=== PATIENT | female | born 1980 | race Caucasian/White ===

== ENCOUNTER 2016-07-14 18:16 | Emergency (ER) | payer OTHER ==
[2016-07-14 18:34] VITALS: BP 132/90
[2016-07-14] MEDS ORDERED: ALBUTEROL SULFATE/IPRATROPIUM 3 ML NEBU IH ONE ×2 (18:40→18:44)
[2016-07-14] MEDS ORDERED: METHYLPREDNISOLONE SOD SUCC/PF 125 MG/2 ML VIAL IM ONE (18:41)
[2016-07-14] MEDS ORDERED: METHYLPREDNISOLONE SOD SUCC/PF 125 MG/2 ML VIAL ONE (18:43)
--- NOTE | 2016-07-14 18:49 | ERNOTE ---
Date of Service: 07/14/16 Time Seen by Provider: 07/14/16 18:38 Stated Complaint: SINUS PAIN.SNEEZING. Presenting Symptoms:: cough, sore throat, runny nose, fever Source: patient Exam Limitations: no limitations Immunizations: IMMUNIZATION HX Immunizations Up to Date Yes History of Influenza Vaccine Yes Hx Pneumococcal Vaccination No Allergies/Adverse Reactions: Allergies fexofenadine HCl [From [employer]] Allergy (Verified 05/16/16 00:30) Other Home Medications: HOME MEDICATIONS Omeprazole [Prilosec] 20 mg PO DAILY 02/23/16 [Last Taken Unknown] ALPRAZolam [Xanax] 0.25 mg PO DAILY PRN 04/20/16 [Last Taken Unknown] Aspirin [Aspirin Chewable] 81 mg PO DAILY 04/20/16 [Last Taken Unknown] Terbinafine HCl [Lamisil] 250 mg PO DAILY 04/20/16 [Last Taken Unknown] Albuterol Sulfate [Proair Hfa] 2 puff IH TID PRN #1 inhaler 07/14/16 [Last Taken Unknown] Benzonatate 150 mg PO TID #15 capsule 07/14/16 [Last Taken Unknown] Fluticasone Propionate [Flonase] 2 spray NS DAILY #1 inhaler 07/14/16 [Last Taken Unknown] Loratadine [Claritin] 10 mg PO DAILY #30 cap 07/14/16 [Last Taken Unknown] - History of Present Ilness Narrative: Patient comes due to coughing, sinus pain, congestion, and general body pain. Timing: constant Severity: moderate Frequency/Possible Cause: Reports: no prior episodes Modifying Factors - Improves: Reports: nothing Modifying Factors - Worsens: Reports: coughing, deep breath Associated Symptoms: Reports: cough, wheezing, nasal congestion, sore throat, muscle aches, fever/chills, other - Pain behid the eyes. Denies: shortness of breath, lightheadedness, earache Prior Treatment: Denies: recently seen Review of Systems - Review of Systems Constitutional: Present: fever, chills, malaise EYE: Present: no symptoms reported, eye pain - Pain behind the eyes ENT: Present: no symptoms reported Respiratory: Present: cough, wheezing. Absent: shortness of breath Cardiology: Absent: chest pain, palpitations, syncope, edema Gastrointestinal/Abdominal: Absent: nausea, vomiting, diarrhea, constipation, abdominal pain Genitourinary: Present: no symptoms reported Musculoskeletal: Present: muscle pain Skin: Absent: rash, lesions Neurological: Present: no symptoms reported Endocrine: Present: no symptoms reported Hematologic/Lymphatic: Absent: easy bruising, easy bleeding Psych: Present: no symptoms reported All Other Systems: All systems neg except as marked - Patient's Past Medical History Patient History - Medical: Anxiety, Diabetes Type 2, Depression, GERD, Obesity Patient History - Cardiac/Respiratory: Hypertension, Hyperlipidemia Patient History - Cancer: No Hx of Cancer Patient History - Surgical Procedures: Cholecystectomy, , Tubal Ligation - Family History Mother\ Family History - Medical: Diabetes Type 2 Family History - Cardiac/Respiratory: Hypertension Father] Family History - Medical: Diabetes Type 2 Family History - Cardiac/Respiratory: Hypertension - Social History Living Situations: home Smoking Status: Current every day smoker Have you smoked in the past 12 months: Yes Do you dip or chew tobacco: No Patient requests Smoking Cessation Consult: No Initiate information on Smoking Cessation: No Alcohol Use: none Drug Use: none Physical Exam - Physical Exam General Appearance: Present: wd/wn, alert, no apparent distress Eye Exam: Normal inspection: bilateral, PERRL: bilateral, EOMI: bilateral Ears, Nose, Throat: Present: normal ENT inspection, nasal congestion - Clear secretion noticed, sinus pain/drainage, pharyngeal erythema, pharyngeal swelling. Absent: tonsillar exudate, dry mucous membranes Neck: Present: normal inspection, nontender Cardiovascular/Chest: Present: regular rate, rhythm, no murmur, normal peripheral pulses Peripheral Pulses: N=norm/S=strong/W=weak/B=bound/A=absent: Radial (R): Normal, Radial (L): Normal, Dorsalis-pedis (R): Normal, Dorsalis-pedis (L): Normal Gastrointestinal/Abdominal: Present: normal bowel sounds, nontender, nondistended, soft, no organomegaly Back Exam: Present: no CVA tenderness Extremity Exam: Present: normal inspection, non-tender, no edema, normal range of motion Neurological Exam: Present: alert, oriented, normal mood/affect, no motor/ sensory deficits Skin Exam: Absent: diaphoresis, cyanosis, jaundice, skin rash Lymphatic Exam: Present: no adenopathy ED Progress - Date and Time Seen: Date and Time: 07/14/16 19:15 Patient with no distress and with a viral syndrome. Tx will be given and patient will be discharge home. - Results and Orders Patient's Lab Results:: I have reviewed the patient's lab results. Results and Orders: Negative Flu - Vital Signs Patient's Vital Signs:: I have reviewed the patient's vital signs. Vital Signs: Vital Signs 07/14/16 18:28 Temperature 36.8 C Pulse Rate 85 Respiratory 18 Rate Blood Pressure 132/90 O2 Sat by Pulse 96 Oximetry - X-Ray X-Ray #1 X-Ray: chest Interpretation: Interp. by mt X-ray Comments: Air Trapping, No infiltrates and no Consolidates - Progress/Reassessment Chief Complaint: Upper Respiratory Symptoms Departure - Departure Clinical Impression: Upper respiratory disease Sinusitis Qualifiers: Sinusitis location: frontal Chronicity: acute Recurrence: non-recurrent Qualified Code(s): J01.10 - Acute frontal sinusitis, unspecified Disposition: Home self-care Condition: Stable Instructions: Sinusitis, Adult, [id number], Upper Respiratory Infection, Adult, [id number] Referrals: Lupillo Finney MD [Primary Care Provider] - Prescriptions: Albuterol Sulfate [Proair Hfa] 2 puff IH TID PRN #1 inhaler PRN Reason: Shortness Of Breath Benzonatate 150 mg PO TID #15 capsule Fluticasone Propionate [Flonase] 2 spray NS DAILY #1 inhaler Loratadine [Claritin] 10 mg PO DAILY #30 cap
== END 2016-07-14 19:20 | disposition home or self-care (01) ==
LOC: ER 18:16
DX: J06.9 Acute upper respiratory infection, unspecified (principal); J01.10 Acute frontal sinusitis, unspecified; F17.210 Nicotine dependence, cigarettes, uncomplicated; F41.9 Anxiety disorder, unspecified; K21.9 Gastro-esophageal reflux disease without esophagitis

== ENCOUNTER 2016-08-05 22:53 | Emergency (ER) | payer OTHER ==
--- NOTE | 2016-08-05 23:52 | ERNOTE ---
Medical Problem HPI - Narrative Date of Service: 08/05/16 - General Chief Complaint: General Assessment Time Seen by Provider: 08/05/16 23:15 Source: patient Exam Limitations: no limitations - Immun/Allergies/Home Medications Immunizations: IMMUNIZATION HX Immunizations Up to Date No History of Influenza Vaccine Yes Hx Pneumococcal Vaccination No Allergies/Adverse Reactions: Allergies fexofenadine HCl [From [facility]] Allergy (Verified 08/05/16 23:06) Other Home Medications: HOME MEDICATIONS Omeprazole [Prilosec] 20 mg PO DAILY 02/23/16 [Last Taken Unknown] ALPRAZolam [Xanax] 0.5 mg PO DAILY PRN 04/20/16 [Last Taken 08/05/16 17:00] Aspirin [Aspirin Chewable] 81 mg PO DAILY 04/20/16 [Last Taken Unknown] Albuterol Sulfate [Proair Hfa] 2 puff IH TID PRN #1 inhaler 07/14/16 [Last Taken Unknown] - History of Present History Date (Duration): 08/05/16 Time (Timing): 23:45 Timing: resolved prior to arrival Severity: mild Modifying Factors - (Improves): Present: other - this patient reports that one week ago she had a significant sinus infection which required prolonged bed rest for a few days. She states she's also just getting over her menstrual cycle and that she tends to drink a large amount of soda pop with very little water. Today patient had a migraine headache which responded to her typical Tylenol regimen. Little later in afternoon she noted that her heart seemed to be racing and used her home blood pressure cuff which showed a heart rate greater than 110 and blood pressure 150/110. Patient became concerned and came to the ER for further evaluation. Essentially all symptoms mentioned above have resolved. Patient had no associated chest pain diaphoresis or shortness of breath nausea vomiting or any neck to arm or back pain with the above. Patient cardiac risk factors positive for tobacco positive for hypertension negative for family history negative for hyperlipidemia negative for diabetes mellitus. Review of Systems - Review of Systems Constitutional: Present: no symptoms reported EYE: Present: no symptoms reported ENT: Present: no symptoms reported Respiratory: Present: no symptoms reported Cardiology: Present: palpitations, other - patient has also noted some orthostatic hypotension symptoms over the last few days. Gastrointestinal/Abdominal: Present: no symptoms reported Genitourinary: Present: no symptoms reported Musculoskeletal: Present: no symptoms reported Skin: Present: no symptoms reported Neurological: Present: dizziness/light-headedness Endocrine: Present: no symptoms reported Hematologic/Lymphatic: Present: no symptoms reported Psych: Present: no symptoms reported - Patient's Past Medical History Patient History - Medical: Anxiety, Diabetes Type 2, Depression, GERD, Obesity Patient History - Cardiac/Respiratory: Hypertension Patient History - Cancer: No Hx of Cancer Patient History - Surgical Procedures: Cholecystectomy, , Tubal Ligation Patient History - Other: None LMP (females 10-50): this week - Family History Mother\ Family History - Medical: Diabetes Type 2 Family History - Cardiac/Respiratory: Hypertension Father] Family History - Medical: Diabetes Type 2 Family History - Cardiac/Respiratory: Hypertension - Social History Living Situations: home Abuse History: No History of abuse Psych History: Hx of Anxiety, Hx of Depression, Hx of Psychiatric Tx Smoking Status: Current every day smoker Alcohol Use: rarely Drug Use: none - Immunizations Immunizations Up to Date: No Hx Pneumococcal Vaccination: No History of Influenza Vaccine: Yes Physical Exam - Physical Exam General Appearance: Present: wd/wn, alert, no apparent distress Eye Exam: Normal inspection: bilateral, PERRL: bilateral, EOMI: bilateral Ears, Nose, Throat: Present: normal ENT inspection, hearing grossly normal, normal pharynx Neck: Present: normal inspection, nontender Respiratory: Present: no respiratory distress, normal breath sounds, no accessory muscle use, chest nontender, lungs clear Cardiovascular/Chest: Present: regular rate, rhythm, no murmur, normal peripheral pulses Peripheral Pulses: N=norm/S=strong/W=weak/B=bound/A=absent: Carotid (R): Normal , Carotid (L): Normal, Dorsalis-pedis (R): Normal, Dorsalis-pedis (L): Normal Gastrointestinal/Abdominal: Present: normal bowel sounds, nontender, nondistended, soft, no organomegaly Back Exam: Present: normal inspection, normal range of motion, no CVA tenderness , no vertebral tenderness Extremity Exam: Present: normal inspection, non-tender, no edema, normal range of motion Neurological Exam: Present: alert, oriented, normal mood/affect, no motor/ sensory deficits Skin Exam: Present: normal color, warm/dry Lymphatic Exam: Present: no adenopathy ED Progress - Date and Time Seen: Date and Time: 08/05/16 23:49 Patient with multiple recent events which was likely result in mild time patient 's status. Patient EKG today sinus rhythm with rate 95. No ST-T changes seen. QRS interval 93 VT interval 1:30 QTC 401. Patient feels she is stable enough to rehydrate orally this declining IV fluids. Given low cardiac risk and fact that this is first time ever she has had sensation of heart palpitations and transient tachycardia feel best to have patient rehydrate minimize soda intake and return only if symptoms persist. If this should recur we'll discuss placement of Holter monitor and/or [employer] monitor based on frequency of symptoms. Did not feel benefits outweighed cost of this low likelihood of being any more than transient problem at this point. Examine EKG as mentioned above normal but extremely low likelihood of cardiac laboratory or clinical abnormality. Should symptoms recur as mentioned above we'll proceed with expanded workup at that point. - Results and Orders Patient's Lab Results:: I have reviewed the patient's lab results. - Vital Signs Patient's Vital Signs:: I have reviewed the patient's vital signs. Vital Signs: Vital Signs 08/05/16 22:59 Temperature 36.1 C L Pulse Rate 98 Respiratory 18 Rate Blood Pressure 161/96 O2 Sat by Pulse 98 Oximetry - Progress/Reassessment Chief Complaint: General Assessment Departure - Departure Clinical Impression: Dehydration Disposition: Home self-care Condition: Good Instructions: Rehydration, Adult Additional Instructions: Recommend moderate restriction soda intake with increase in fluid intake consisting of water. Recommend 6 date large glasses of water daily. Please change positions slowly especially going from sitting to standing over the next few days. Should symptoms of heart racing recur these return for reexamination and cardiac monitor technician placement. At that point we'll expand workup to include lab testing as well. Referrals: Lupillo Finney MD [Primary Care Provider] -
[2016-08-05 23:53] VITALS: BP 140/86
== END 2016-08-05 23:58 | disposition home or self-care (01) ==
LOC: ER 22:53
DX: E86.0 Dehydration (principal); F17.210 Nicotine dependence, cigarettes, uncomplicated; F41.9 Anxiety disorder, unspecified; K21.9 Gastro-esophageal reflux disease without esophagitis

== ENCOUNTER 2016-10-17 21:15 | Emergency (ER) | payer OTHER ==
[2016-10-17 21:30] VITALS: BP 163/104
--- NOTE | 2016-10-17 22:11 | ERNOTE ---
Medical Problem HPI - General Chief Complaint: General Assessment Time Seen by Provider: 10/17/16 22:01 Source: patient Exam Limitations: no limitations - Immun/Allergies/Home Medications Immunizations: IMMUNIZATION HX Immunizations Up to Date Yes History of Influenza Vaccine Yes Hx Pneumococcal Vaccination No Allergies/Adverse Reactions: Allergies fexofenadine HCl [From [facility]] Allergy (Verified 08/05/16 23:06) Other Home Medications: HOME MEDICATIONS Omeprazole [Prilosec] 20 mg PO DAILY 02/23/16 [Last Taken Unknown] ALPRAZolam [Xanax] 0.5 mg PO DAILY PRN 04/20/16 [Last Taken 08/05/16 17:00] Aspirin [Aspirin Chewable] 81 mg PO DAILY 04/20/16 [Last Taken Unknown] Albuterol Sulfate [Proair Hfa] 2 puff IH TID PRN #1 inhaler 07/14/16 [Last Taken Unknown] Cephalexin [Keflex] 500 mg PO QID #40 capsule 10/17/16 [Last Taken Unknown] Lisinopril 5 mg PO DAILY 10/17/16 [Last Taken Unknown] Propranolol HCl 40 mg PO DAILY 10/17/16 [Last Taken Unknown] Venlafaxine HCl [Effexor Xr] 75 mg PO DAILY 10/17/16 [Last Taken Unknown] - History of Present History Narrative: pt had a tattoo outline that she had for some time. Two weeks ago she had it filled in with color. The tattoo then began to get red and swollen. She called the clinic and they told her she needed to be seen in the ER. Timing: getting worse Severity: moderate Review of Systems - Review of Systems Constitutional: Present: weakness, fatigue. Absent: recent illness EYE: Present: no symptoms reported ENT: Present: no symptoms reported Respiratory: Present: shortness of breath - x 2 days Cardiology: Present: edema - b/l LE . Absent: chest pain Gastrointestinal/Abdominal: Present: no symptoms reported Genitourinary: Present: no symptoms reported Musculoskeletal: Present: no symptoms reported Skin: Present: See HPI Neurological: Present: no symptoms reported Endocrine: Present: no symptoms reported Hematologic/Lymphatic: Present: no symptoms reported Psych: Present: anxiety - Patient's Past Medical History Patient History - Medical: Anxiety, Diabetes Type 2, Depression, GERD, Obesity Patient History - Cardiac/Respiratory: Hypertension Patient History - Cancer: No Hx of Cancer Patient History - Surgical Procedures: Cholecystectomy, , Tubal Ligation Patient History - Other: None LMP (females 10-50): 3 weeks - Family History Mother\\ Family History - Medical: Diabetes Type 2 Family History - Cardiac/Respiratory: Hypertension Father] Family History - Medical: Diabetes Type 2 Family History - Cardiac/Respiratory: Hypertension - Social History Living Situations: spouse Abuse History: No History of abuse Psych History: Hx of Anxiety, Hx of Depression, Hx of Psychiatric Tx Smoking Status: Current every day smoker Have you smoked in the past 12 months: Yes Do you dip or chew tobacco: No Alcohol Use: rarely Drug Use: none - Immunizations Immunizations Up to Date: Yes Hx Pneumococcal Vaccination: No History of Influenza Vaccine: Yes Physical Exam - Physical Exam General Appearance: Present: wd/wn, alert, no apparent distress Eye Exam: Normal inspection: bilateral Respiratory: Present: no respiratory distress, normal breath sounds, lungs clear Cardiovascular/Chest: Present: regular rate, rhythm, no murmur Extremity Exam: Present: extremity edema - 2+ b/l. . Absent: calf tenderness, bony tenderness Neurological Exam: Present: alert, oriented, normal mood/affect Skin Exam: Present: other - erythema and scabbing on the [id number] tattoo with a baloon. The balloon is the most effected, nearly completely scabbed and erythematous just outside of the balloon outline Lymphatic Exam: Present: no adenopathy ED Progress - Results and Orders Patient's Lab Results:: I have reviewed the patient's lab results. Results and Orders: Laboratory Tests 10/17/16 10/17/16 10/17/16 22:17 22:17 22:17 WBC 8.3 Hgb 12.2 L Hct 37.4 Plt Count 266 ESR 19 H Sodium 142 Plasma Sodium 143 H Potassium 3.8 Chloride 105 Carbon Dioxide 25.1 Anion Gap 15.7 H BUN 7 Creatinine 0.85 Est GFR (Non-Af Amer) 81 BUN/Creatinine Ratio 8.2 L Random Glucose 175 H Calcium 7.7 L C-Reactive Prot, Quant 1.9 H B-Natriuretic Peptide 154 H - Vital Signs Patient's Vital Signs:: I have reviewed the patient's vital signs. Vital Signs: Vital Signs 10/17/16 10/17/16 21:23 21:45 Temperature 36.7 C Pulse Rate 102 H 113 H Respiratory 18 Rate Blood Pressure 163/104 O2 Sat by Pulse 97 97 Oximetry - Progress/Reassessment Chief Complaint: General Assessment Progress:: Unchanged Progress Note-Subjective: 10/17/16 23:57 discussed elevating her legs 30-60 minutes a day to help with edema. Pt states that she does get some "water retention" during her period this is more that usual Departure - Departure Clinical Impression: Cellulitis of leg Qualifiers: Laterality: left Qualified Code(s): L03.116 - Cellulitis of left lower limb Disposition: Home self-care Condition: Good Instructions: Cellulitis, Adult, [id number] Referrals: Lupillo Finney MD [Primary Care Provider] - Prescriptions: Cephalexin [Keflex] 500 mg PO QID #40 capsule
[2016-10-17 22:23] LABS: Hematocrit 37.4 % (37.0-47.0); Hemoglobin 12.2 gm/dL (12.5-16.0); Mean Cell Volume 80.4 fl (78-100); Mean Corpuscular Hemoglobin 26.2 pg (27-31); Mean Corpuscular Hgb Conc 32.6 g/dl (32-36); Mean Platelet Volume 8.4 fl (6.0-9.5); Neutrophil # 5.6 K/mm3 (1.3-6.0); Neutrophil % 67.3 % (42-75.0); Platelet Count 266 K/mm3 (150-450); Red Blood Count 4.65 M/mm3 (4.2-5.4); Red Cell Distribution Width 14.6 % (11.5-14.0); White Blood Count 8.3 K/mm3 (4.0-10.5)
[2016-10-17 22:59] LABS: Anion Gap 15.7 mmol/L (6.8-13.8); BUN/Creatinine Ratio 8.2 (9.0-21.6); CRP 1.9 mg/dL (0.0-0.9); Calcium * 7.7 mg/dL (7.9-10.9); Carbon Dioxide 25.1 mmol/L (24-32.6); Estimated Creat Clear 100.8; Potassium 3.8 mmol/L (3.4-4.6)
[2016-10-17] MEDS ORDERED: CEPHALEXIN MONOHYDRATE 250 MG CAPSULE PO ONE (23:20)
[2016-10-17] MEDS ORDERED: CEPHALEXIN MONOHYDRATE 250 MG CAPSULE ONE (23:22)
== END 2016-10-17 23:30 | disposition home or self-care (01) ==
LOC: ER 21:15
DX: L03.116 Cellulitis of left lower limb (principal)

== ENCOUNTER 2016-10-20 16:48 | Emergency (ER) | payer OTHER ==
[2016-10-20 17:31] LABS: Hematocrit 37.7 % (37.0-47.0); Hemoglobin 12.3 gm/dL (12.5-16.0); Mean Corpuscular Hemoglobin 26.7 pg (27-31); Mean Corpuscular Hgb Conc 32.6 g/dl (32-36); Mean Platelet Volume 8.5 fl (6.0-9.5); Neutrophil # 5.2 K/mm3 (1.3-6.0); Neutrophil % 68.1 % (42-75.0); Platelet Count 237 K/mm3 (150-450); Red Cell Distribution Width 14.6 % (11.5-14.0); White Blood Count 7.7 K/mm3 (4.0-10.5)
[2016-10-20 17:33] LABS: Urine Appearance Clear; Urine Bacteria None Seen; Urine Bilirubin Negative (NEGATIVE); Urine Blood Negative /ul (NEGATIVE); Urine Color Yellow; Urine Ketone Negative (NEGATIVE); Urine Nitrite Negative (NEGATIVE); Urine Protein Negative (NEGATIVE); Urine RBC None Seen /hpf (0-5); Urine Urobilinogen Normal (NORMAL); Urine WBC None Seen /hpf (0-5)
--- NOTE | 2016-10-20 17:51 | ERNOTE ---
Dyspnea - Date Date of Service: 10/20/16 - General Presenting Symptoms: shortness of breath Time Seen by Provider: 10/20/16 17:05 - Immun/Allergies/Home Medications Immunizations: IMMUNIZATION HX Immunizations Up to Date Yes History of Influenza Vaccine Yes Hx Pneumococcal Vaccination No Allergies/Adverse Reactions: Allergies fexofenadine HCl [From [facility]] Allergy (Verified 10/20/16 17:02) Other Home Medications: HOME MEDICATIONS Omeprazole [Prilosec] 20 mg PO DAILY 02/23/16 [Last Taken Unknown] ALPRAZolam [Xanax] 0.5 mg PO DAILY PRN 04/20/16 [Last Taken 08/05/16 17:00] Aspirin [Aspirin Chewable] 81 mg PO DAILY 04/20/16 [Last Taken Unknown] Albuterol Sulfate [Proair Hfa] 2 puff IH TID PRN #1 inhaler 07/14/16 [Last Taken Unknown] Cephalexin [Keflex] 500 mg PO QID #40 capsule 10/17/16 [Last Taken Unknown] Lisinopril 5 mg PO DAILY 10/17/16 [Last Taken Unknown] Propranolol HCl 40 mg PO DAILY 10/17/16 [Last Taken Unknown] Venlafaxine HCl [Effexor Xr] 75 mg PO DAILY 10/17/16 [Last Taken Unknown] Clindamycin HCl [Cleocin HCl] 300 mg PO QID #40 capsule 10/20/16 [Last Taken Unknown] Prednisone 50 mg PO DAILY #5 tablet 10/20/16 [Last Taken Unknown] - History of Present Illness Narrative: Patient presents to the ED for evaluation of SOB. She relates that she thinks she is reacting to the keflex she is on. She tells me she was placed on Keflex for a left leg cellulitis and ever since she has started the Keflex 2.5 days ago she has been feeling SOB. She notices the SOB all the time but thisnks it is worse at night. There is some sensation of chjest tightness with this but no specific CP. No pleuritic pain. No fever or vomiting. She fells like she needs to cough something up but can't. No other URI Sx. Has not seen anyone else for this. Not clearly worse with exertion. No DDVT Sx or new leg swelling aside from the cellulitis at a tattoo site. Severity: mild Initiating event: Reports: unknown Frequency of episodes: Reports: no prior episodes Modifying Factors - (Improves): Reports: nothing Modifying Factors (Worsens): Reports: nothing Associated Symptoms-Dyspnea: Denies: fever/chills, sweating, palpitations, lightheadedness, weakness Prior Treatment: Reports: recently seen, treated by physician Review of Systems - Review of Systems Constitutional: Absent: fever Respiratory: Present: See HPI Cardiology: Present: See HPI Gastrointestinal/Abdominal: Absent: abdominal pain Skin: Present: See HPI Neurological: Absent: weakness - Patient's Past Medical History Patient History - Medical: Anxiety, Diabetes Type 2, Depression, GERD, Obesity Patient History - Cardiac/Respiratory: Hypertension Patient History - Cancer: No Hx of Cancer Patient History - Surgical Procedures: Cholecystectomy, , Tubal Ligation Patient History - Other: None - Family History Mother\ Family History - Medical: Diabetes Type 2 Family History - Cardiac/Respiratory: Hypertension Father] Family History - Medical: Diabetes Type 2 Family History - Cardiac/Respiratory: Hypertension - Social History Living Situations: spouse Abuse History: No History of abuse Psych History: Hx of Anxiety, Hx of Depression, Hx of Psychiatric Tx Alcohol Use: rarely Drug Use: none - Immunizations Immunizations Up to Date: Yes Hx Pneumococcal Vaccination: No History of Influenza Vaccine: Yes Physical Exam - Physical Exam General Appearance: Present: alert, no apparent distress Eye Exam: Normal inspection: bilateral, PERRL: bilateral Ears, Nose, Throat: Present: normal ENT inspection Neck: Present: normal inspection Respiratory: Present: no respiratory distress, normal breath sounds, no accessory muscle use, lungs clear. Absent: accessory muscle use Cardiovascular/Chest: Present: regular rate, rhythm, normal peripheral pulses Gastrointestinal/Abdominal: Present: normal bowel sounds, nontender, soft Back Exam: Present: normal range of motion Extremity Exam: Present: other - No DVT findings. Neurological Exam: Present: alert, normal mood/affect, no motor/sensory deficits Skin Exam: Present: other - cellulitis from infected tattoo left leg. No nec fasc. ED Progress - Results and Orders Patient's Lab Results:: I have reviewed the patient's lab results. - Vital Signs Patient's Vital Signs:: I have reviewed the patient's vital signs. Vital Signs: Vital Signs 04/28/17 04/28/17 16:53 17:19 Temperature 35.8 C L Pulse Rate 96 79 Respiratory 22 H Rate Blood Pressure 168/118 O2 Sat by Pulse 95 Oximetry - EKG EKG: NSR EKG read: Interp. by me EKG Comments: NSR rate 79. Non-specific changes, no STEMI. - X-Ray X-Ray #1 X-Ray: chest Interpretation: Interp. by me X-ray Comments: Pending official CXR reading. My interp, No acute pulmonary process. - Progress/Reassessment Chief Complaint: Dyspnea Progress Note-Subjective: 10/20/16 19:39 Feels improved. She does not wish to wait for official CXR reading. Will stop ABx, place on prednisone, change ABx and have her f/u. Nothign to suggest PE, aortic dissection with d-dimer in normal range I do not feel CT indicated. Nothing to suggest ACS. I do not feel CXR is suggestive of CHF. She feels like going home. I discussed warning signs and reasons to return as well as the need for close f/u. I will treat with steroid just in case this was some mild allergic reaction from the Keflex as the patient thought. 10/20/16 19:45 Departure Clinical Impression: SOB (shortness of breath), Cellulitis - Departure Disposition: Home self-care Condition: Stable Additional Instructions: Stop Keflex, begin new antibiotic. Use your inhaler every 4 hours. Prednisone. Follow-up sunday with your primary doctor for a re-check. Return here for increased trouble breathing, fever or if your condition worsens or changes in any way. Referrals: Lupillo Finney MD [Primary Care Provider] - Prescriptions: Clindamycin HCl [Cleocin HCl] 300 mg PO QID #40 capsule Prednisone 50 mg PO DAILY #5 tablet
[2016-10-20 17:53] LABS: ALT 34 U/L (19-67); AST 20 U/L (0-48); Albumin * 2.9 gm/dl (3.4-5.0); Alkaline Phosphatase * 107 U/L (50-170); Anion Gap 10.8 mmol/L (6.8-13.8); BUN/Creatinine Ratio 10.3 (9.0-21.6); Bilirubin, Total 0.2 mg/dL (0.0-1.1); Blood Urea Nitrogen 8 mg/dL (3-23); Ca. Corrected For Albumin 8.5 mg/dL (8.4-10.2); Calcium * 7.9 mg/dL (7.9-10.9); Carbon Dioxide 28.1 mmol/L (24-32.6); Chloride 105 mmol/L (97-106); Glucose * 134 mg/dL (70-110); Potassium 3.9 mmol/L (3.4-4.6); Sodium 140 mmol/L (132-142); Total Protein 6.5 gm/dL (6.2-8.2); Troponin I Less than 0.017 ng/ml (0.00-0.10)
[2016-10-20 21:47] VITALS: BP 133/73
== END 2016-10-20 19:54 | disposition home or self-care (01) ==
LOC: ER 16:48
DX: R06.02 Shortness of breath (principal); L03.116 Cellulitis of left lower limb

== ENCOUNTER 2016-12-28 22:40 | Emergency (ER) | payer OTHER ==
[2016-12-28] MEDS ORDERED: NORMAL SALINE 1,000 ML IV ONE (23:04)
--- NOTE | 2016-12-28 23:05 | ERNOTE ---
Medical Problem HPI - General Chief Complaint: Diabetes Related Problem Time Seen by Provider: 12/28/16 22:53 Source: patient Exam Limitations: no limitations - Immun/Allergies/Home Medications Immunizations: IMMUNIZATION HX Immunizations Up to Date Yes History of Influenza Vaccine Yes Hx Pneumococcal Vaccination No Allergies/Adverse Reactions: Allergies fexofenadine HCl [From Neris] Allergy (Verified 12/28/16 22:49) Other Home Medications: HOME MEDICATIONS Omeprazole [Prilosec] 20 mg PO DAILY 02/23/16 [Last Taken Unknown] ALPRAZolam [Xanax] 0.5 mg PO DAILY PRN 04/20/16 [Last Taken 08/05/16 17:00] Albuterol Sulfate [Proair Hfa] 2 puff IH TID PRN #1 inhaler 07/14/16 [Last Taken Unknown] Lisinopril 5 mg PO DAILY 10/17/16 [Last Taken Unknown] Propranolol HCl 40 mg PO DAILY 10/17/16 [Last Taken Unknown] Venlafaxine HCl [Effexor Xr] 75 mg PO DAILY 10/17/16 [Last Taken Unknown] glipiZIDE [Glucotrol Xl] 2.5 mg PO DAILY@0700 #7 tab.sr.24h 12/29/16 [Last Taken Unknown] metFORMIN HCL [Glucophage] 1,000 mg PO BIDWM #14 tablet 12/29/16 [Last Taken Unknown] - History of Present History Narrative: Pt states that she noticed that she was urinating a lot over the past few days. She checked her blood sugar and it was over 250. She began taking her metformin and glipizide again. Her blood sugars have continued to stay over 200. Timing: getting worse Severity: moderate Review of Systems - Review of Systems Constitutional: Absent: recent illness, fever, chills EYE: Present: no symptoms reported ENT: Present: no symptoms reported Respiratory: Absent: shortness of breath, cough Cardiology: Absent: chest pain, palpitations Gastrointestinal/Abdominal: Present: diarrhea. Absent: nausea, vomiting Genitourinary: Present: frequency, other - "yeast infection" twice in the last 4 months.. Absent: dysuria, hematuria Musculoskeletal: Present: no symptoms reported Skin: Present: no symptoms reported Neurological: Present: no symptoms reported Endocrine: Present: no symptoms reported Hematologic/Lymphatic: Present: no symptoms reported Psych: Present: no symptoms reported - Patient's Past Medical History Patient History - Medical: Anxiety, Diabetes Type 2, Depression, GERD, Obesity Patient History - Cardiac/Respiratory: Hypertension Patient History - Cancer: No Hx of Cancer Patient History - Surgical Procedures: Cholecystectomy, , Tubal Ligation Patient History - Other: None LMP (females 10-50): 4 months - Family History Mother\\ Family History - Medical: Diabetes Type 2 Family History - Cardiac/Respiratory: Hypertension Father] Family History - Medical: Diabetes Type 2 Family History - Cardiac/Respiratory: Hypertension - Social History Living Situations: home Abuse History: No History of abuse Psych History: Hx of Anxiety, Hx of Depression, Hx of Psychiatric Tx Alcohol Use: rarely Drug Use: none - Immunizations Immunizations Up to Date: Yes Hx Pneumococcal Vaccination: No History of Influenza Vaccine: Yes Physical Exam - Physical Exam General Appearance: Present: wd/wn, alert, no apparent distress Neck: Present: normal inspection, nontender Respiratory: Present: no respiratory distress, normal breath sounds, lungs clear Cardiovascular/Chest: Present: regular rate, rhythm, no murmur, normal peripheral pulses Back Exam: Present: normal inspection, normal range of motion Extremity Exam: Present: normal inspection, normal range of motion, no edema Neurological Exam: Present: alert, oriented, normal mood/affect Skin Exam: Present: normal color, warm/dry Lymphatic Exam: Present: no adenopathy ED Progress - Results and Orders Patient's Lab Results:: I have reviewed the patient's lab results. Results and Orders: Laboratory Tests 12/28/16 12/28/16 12/28/16 23:04 23:17 23:17 WBC 6.9 Hgb 13.5 Hct 41.0 Plt Count 211 Sodium 137 Potassium 3.8 Chloride 100 Carbon Dioxide 28.1 Anion Gap 12.7 BUN 8 Creatinine 0.92 Est GFR (Non-Af Amer) 74 BUN/Creatinine Ratio 8.7 L Random Glucose 258 H Calcium 8.3 Calcium Adj for Albumin 8.7 Total Bilirubin 0.3 AST 32 ALT 52 Alkaline Phosphatase 122 Total Protein 6.9 Albumin 3.1 L Urine Color Urine Appearance Urine pH Ur Specific [place] Urine Protein Urine Glucose (UA) Urine Ketones Urine Blood Urine Nitrate Urine Bilirubin Urine Urobilinogen Ur Leukocyte Esterase Urine RBC Urine WBC Ur Epithelial Cells Amorphous Sediment Urine Bacteria Urine Mucus Urine Culture Comments Urine HCG, Qual Negative 12/29/16 00:02 WBC Hgb Hct Plt Count Sodium Potassium Chloride Carbon Dioxide Anion Gap BUN Creatinine Est GFR (Non-Af Amer) BUN/Creatinine Ratio Random Glucose Calcium Calcium Adj for Albumin Total Bilirubin AST ALT Alkaline Phosphatase Total Protein Albumin Urine Color Pale yellow Urine Appearance Slightly cloudy Urine pH 6.0 Ur Specific [place] <=1.005 Urine Protein Negative Urine Glucose (UA) 100 H Urine Ketones Negative Urine Blood 5 H Urine Nitrate Negative Urine Bilirubin Negative Urine Urobilinogen Normal Ur Leukocyte Esterase Negative Urine RBC 0-5 Urine WBC 0-5 Ur Epithelial Cells 10-25 H Amorphous Sediment Moderate - 2+ H Urine Bacteria None seen Urine Mucus Moderate - 2+ H Urine Culture Comments No culture indicated Urine HCG, Qual - Vital Signs Patient's Vital Signs:: I have reviewed the patient's vital signs. Vital Signs: Vital Signs 12/28/16 12/28/16 22:44 22:53 Temperature 36.0 C L Pulse Rate 94 96 Respiratory 15 Rate Blood Pressure 147/102 O2 Sat by Pulse 95 Oximetry - Progress/Reassessment Chief Complaint: Diabetes Related Problem Progress:: Unchanged Progress Note-Subjective: 12/29/16 01:02 Spoke with the patient about normal lab and xrays. She states she is almost out of her diabetic medications. I will refill her glipizide 2.5 mg XL daily x 7 days and metformin 1000 mg BID x 7 days. She will see her PCP within the next week. Departure - Departure Clinical Impression: Diabetes mellitus Qualifiers: Diabetes mellitus type: type 2 Diabetes mellitus complication status: without complication Diabetes mellitus buttermaker continuous churn insulin use: without nursing home use Qualified Code(s): E11.9 - Type 2 diabetes mellitus without complications Disposition: Home Follow Up Needed Condition: Good Instructions: Hyperglycemia, [id number] Additional Instructions: take your metformin twice a day and take your glipizide daily. See your regular doctor next week Referrals: Lupillo Finney MD [Primary Care Provider] - Prescriptions: glipiZIDE [Glucotrol Xl] 2.5 mg PO DAILY@0700 #7 tab.sr.24h metFORMIN HCL [Glucophage] 1,000 mg PO BIDWM #14 tablet
[2016-12-28 23:21] LABS: Hemoglobin 13.5 gm/dL (12.5-16.0); Mean Cell Volume 81.3 fl (78-100); Mean Corpuscular Hemoglobin 26.8 pg (27-31); Mean Corpuscular Hgb Conc 32.9 g/dl (32-36); Mean Platelet Volume 8.8 fl (6.0-9.5); Neutrophil # 4.5 K/mm3 (1.3-6.0); Neutrophil % 64.5 % (42-75.0); Platelet Count 211 K/mm3 (150-450); Red Blood Count 5.04 M/mm3 (4.2-5.4); Red Cell Distribution Width 14.3 % (11.5-14.0); White Blood Count 6.9 K/mm3 (4.0-10.5)
[2016-12-28 23:38] LABS: Albumin * 3.1 gm/dl (3.4-5.0); Anion Gap 12.7 mmol/L (6.8-13.8); BUN/Creatinine Ratio 8.7 (9.0-21.6); Bilirubin, Total 0.3 mg/dL (0.0-1.1); Ca. Corrected For Albumin 8.7 mg/dL (8.4-10.2); Calcium * 8.3 mg/dL (7.9-10.9); Carbon Dioxide 28.1 mmol/L (24-32.6); Potassium 3.8 mmol/L (3.4-4.6); Total Protein 6.9 gm/dL (6.2-8.2)
[2016-12-29 00:08] LABS: Urine Bilirubin Negative (NEGATIVE); Urine Ketone Negative (NEGATIVE); Urine Nitrite Negative (NEGATIVE); Urine Protein Negative (NEGATIVE); Urine Specific Gravity <=1.005 SP.GR. (1.005-1.010); Urine Urobilinogen Normal (NORMAL)
[2016-12-29 00:10] LABS: Urine Amorphous Sediment Moderate - 2+ (NONE-FEW); Urine Appearance Slightly Cloudy; Urine Bacteria None Seen; Urine Blood 5 /ul (NEGATIVE); Urine Color Pale Yellow; Urine Mucus Moderate - 2+; Urine RBC 0-5 /hpf (0-5); Urine WBC 0-5 /hpf (0-5)
[2016-12-29 01:12] VITALS: BP 148/94
== END 2016-12-29 01:08 | disposition home or self-care (01) ==
LOC: ER 22:40
DX: E11.65 Type 2 diabetes mellitus with hyperglycemia (principal)

== ENCOUNTER 2017-03-23 00:39 | Emergency (ER) | payer OTHER ==
[2017-03-23] MEDS ORDERED: NORMAL SALINE 1,000 ML IV ONE (01:10)
[2017-03-23] MEDS ORDERED: ONDANSETRON HCL/PF 2 MG/ML VIAL IV ONE (01:11)
[2017-03-23] MEDS ORDERED: PANTOPRAZOLE SODIUM 40 MG in NORMAL SALINE 100 ML IV ONE (01:11)
[2017-03-23] MEDS ORDERED: MAG HYDROX/ALUMINUM HYD/SIMETH 30 ML UDC PO ONE (01:12)
[2017-03-23] MEDS ORDERED: LIDOCAINE HCL 20 ML UDC PO ONE (01:12)
[2017-03-23 01:31] LABS: Hematocrit 43.9 % (37.0-47.0); Hemoglobin 14.5 gm/dL (12.5-16.0); Mean Cell Volume 82.4 fl (78-100); Mean Corpuscular Hemoglobin 27.2 pg (27-31); Mean Platelet Volume 9.1 fl (6.0-9.5); Neutrophil % 63.5 % (42-75.0); Platelet Count 331 K/mm3 (150-450); Red Blood Count 5.33 M/mm3 (4.2-5.4); White Blood Count 9.4 K/mm3 (4.0-10.5)
[2017-03-23] MEDS ORDERED: PANTOPRAZOLE SODIUM 40 MG/100 ML PIGGYBACK IV ONE (01:38)
[2017-03-23] MEDS ORDERED: ONDANSETRON HCL/PF 2 MG/ML VIAL ONE (01:38)
[2017-03-23 01:46] LABS: Albumin * 3.3 gm/dl (3.4-5.0); Anion Gap 12.2 mmol/L (6.8-13.8); BUN/Creatinine Ratio 9.1 (9.0-21.6); Bilirubin, Total 0.2 mg/dL (0.0-1.1); Ca. Corrected For Albumin 8.9 mg/dL (8.4-10.2); Calcium * 8.7 mg/dL (7.9-10.9); Potassium 4.2 mmol/L (3.4-4.6); Total Protein 7.5 gm/dL (6.2-8.2)
[2017-03-23 02:04] LABS: Urine Bilirubin Negative (NEGATIVE); Urine Ketone Negative (NEGATIVE); Urine Nitrite Negative (NEGATIVE); Urine Protein Negative (NEGATIVE); Urine Specific Gravity <=1.005 SP.GR. (1.005-1.010); Urine Urobilinogen Normal (NORMAL)
[2017-03-23 02:22] LABS: Urine Appearance Clear; Urine Bacteria 1+; Urine Blood 5 /ul (NEGATIVE); Urine Color Yellow; Urine RBC None Seen /hpf (0-5); Urine WBC None Seen /hpf (0-5)
[2017-03-23] MEDS ORDERED: ALPRAZolam 0.25 MG TABLET PO ONE (02:32)
[2017-03-23] MEDS ORDERED: ALPRAZolam 0.25 MG TABLET ONE (02:32)
--- NOTE | 2017-03-23 02:57 | ERNOTE ---
Medical Problem HPI - Narrative Date of Service: 03/23/17 - General Chief Complaint: Nausea/Vomiting Time Seen by Provider: 03/23/17 01:04 Source: patient, family Exam Limitations: no limitations - Immun/Allergies/Home Medications Immunizations: IMMUNIZATION HX Immunizations Up to Date Yes History of Influenza Vaccine No Hx Pneumococcal Vaccination No Allergies/Adverse Reactions: Allergies fexofenadine HCl [From Neris] Allergy (Verified 12/28/16 22:49) Other Home Medications: HOME MEDICATIONS Omeprazole [Prilosec] 20 mg PO DAILY 02/23/16 [Last Taken Unknown] Albuterol Sulfate [Proair Hfa] 2 puff IH TID PRN #1 inhaler 07/14/16 [Last Taken Unknown] Lisinopril 5 mg PO DAILY 10/17/16 [Last Taken Unknown] Propranolol HCl 40 mg PO DAILY 10/17/16 [Last Taken Unknown] ALPRAZolam [Xanax] 1 mg PO TID 03/23/17 [Last Taken Unknown] Exenatide [Byetta] 5 mcg SQ BID 03/23/17 [Last Taken Unknown] Ondansetron [Zofran Odt] 4 mg PO Q8H PRN #20 tab 03/23/17 [Last Taken Unknown] Ranitidine HCl 75 mg PO QID #40 tablet 03/23/17 [Last Taken Unknown] glipiZIDE [Glipizide] 10 mg PO BID 03/23/17 [Last Taken Unknown] traMADol HCL [Tramadol HCl] 50 mg PO Q6H 03/23/17 [Last Taken Unknown] - History of Present History Narrative: onset of epigastric pain for last 1-2 days Timing: constant, getting worse Severity: moderate Modifying Factors - (Worsens): Present: eating Review of Systems - Review of Systems Constitutional: Present: See HPI, fatigue, malaise EYE: Present: no symptoms reported ENT: Present: no symptoms reported Respiratory: Present: no symptoms reported Cardiology: Present: no symptoms reported Gastrointestinal/Abdominal: Present: See HPI, nausea, vomiting, abdominal pain - pain in epigastrium Genitourinary: Present: no symptoms reported Musculoskeletal: Present: no symptoms reported Skin: Present: no symptoms reported Neurological: Present: no symptoms reported Endocrine: Present: no symptoms reported Hematologic/Lymphatic: Present: no symptoms reported Psych: Present: no symptoms reported All Other Systems: All systems neg except as marked - Patient's Past Medical History Patient History - Medical: Anxiety, Diabetes Type 2, Depression, GERD, Obesity Patient History - Cardiac/Respiratory: Hypertension Patient History - Cancer: No Hx of Cancer Patient History - Surgical Procedures: Cholecystectomy, , Tubal Ligation Patient History - Other: None - Family History Mother\ Family History - Medical: Diabetes Type 2 Family History - Cardiac/Respiratory: Hypertension Father] Family History - Medical: Diabetes Type 2 Family History - Cardiac/Respiratory: Hypertension - Social History Living Situations: home Abuse History: No History of abuse Psych History: Hx of Anxiety, Hx of Depression, Hx of Psychiatric Tx Smoking Status: Current every day smoker Patient requests Smoking Cessation Consult: No Initiate information on Smoking Cessation: No Alcohol Use: rarely Drug Use: none - Immunizations Immunizations Up to Date: Yes Hx Pneumococcal Vaccination: No History of Influenza Vaccine: No Physical Exam - Physical Exam General Appearance: Present: moderate distress Head Exam: Present: normal inspection, no evidence of injury Eye Exam: Normal inspection: bilateral, PERRL: bilateral, EOMI: bilateral Ears, Nose, Throat: Present: normal ENT inspection Neck: Present: normal inspection, nontender Respiratory: Present: no respiratory distress, normal breath sounds, no accessory muscle use, chest nontender, lungs clear Cardiovascular/Chest: Present: regular rate, rhythm, no murmur, normal peripheral pulses Peripheral Pulses: N=norm/S=strong/W=weak/B=bound/A=absent: Carotid (R): Normal , Carotid (L): Normal, Radial (R): Normal, Radial (L): Normal, Femoral (R): Normal, Femoral (L): Normal, Dorsalis-pedis (R): Normal, Dorsalis-pedis (L): Normal Gastrointestinal/Abdominal: Present: tenderness, abnormal bowel sounds, distended - pain in mid epigastrium Back Exam: Present: normal inspection, normal range of motion, no CVA tenderness , no vertebral tenderness Extremity Exam: Present: normal inspection, non-tender, normal range of motion, no edema Neurological Exam: Present: alert, oriented, normal mood/affect, no motor/ sensory deficits DTR: N=norm/NB=norm/brisk/A=abs/DD=dull/dimin/HC=hyperactive: Bicep (R): Normal , Bicep (L): Normal, Tricep (R): Normal, Tricep (L): Normal, Knee (R): Normal, Knee (L): Normal, Ankle (R): Normal, Ankle (L): Normal Skin Exam: Present: normal color, warm/dry Lymphatic Exam: Present: no adenopathy ED Progress - Results and Orders Patient's Lab Results:: I have reviewed the patient's lab results. - Vital Signs Patient's Vital Signs:: I have reviewed the patient's vital signs. Vital Signs: Vital Signs 03/23/17 03/23/17 00:40 02:30 Temperature 35.9 C L Pulse Rate 104 H 105 H Respiratory 18 22 H Rate Blood Pressure 141/86 143/97 O2 Sat by Pulse 99 99 Oximetry - Progress/Reassessment Chief Complaint: Nausea/Vomiting Progress:: Improved - Transfer of Care Expected Disposition: Discharge Departure Clinical Impression: Gastritis and duodenitis - Departure Disposition: Home self-care Condition: Fair Instructions: Gastritis, Adult, [id number] Referrals: Lupillo Finney MD [Primary Care Provider] - Prescriptions: Ondansetron [Zofran Odt] 4 mg PO Q8H PRN #20 tab PRN Reason: Nausea Ranitidine HCl 75 mg PO QID #40 tablet
[2017-03-23 06:19] VITALS: BP 138/81
== END 2017-03-23 03:03 | disposition home or self-care (01) ==
LOC: ER 00:39
DX: K29.70 Gastritis, unspecified, without bleeding (principal); K29.80 Duodenitis without bleeding; E11.9 Type 2 diabetes mellitus without complications; K21.9 Gastro-esophageal reflux disease without esophagitis; I10 Essential (primary) hypertension; F41.8 Other specified anxiety disorders; F17.200 Nicotine dependence, unspecified, uncomplicated
CPT/HCPCS: 36415; 71020; 74020; 80053; 81001; 82150; 83690; 84703; 85025; 96365; 96375; 99284; J2405

== ENCOUNTER 2017-04-04 22:09 | Emergency (ER) | payer OTHER ==
[2017-04-04 22:42] LABS: Hematocrit 40.5 % (37.0-47.0); Hemoglobin 13.2 gm/dL (12.5-16.0); Mean Corpuscular Hgb Conc 32.6 g/dl (32-36); Mean Platelet Volume 8.4 fl (6.0-9.5); Neutrophil # 5.3 K/mm3 (1.3-6.0); Neutrophil % 66.9 % (42-75.0); Platelet Count 239 K/mm3 (150-450); Red Blood Count 4.88 M/mm3 (4.2-5.4); Red Cell Distribution Width 13.8 % (11.5-14.0); White Blood Count 7.9 K/mm3 (4.0-10.5)
--- NOTE | 2017-04-04 22:44 | ERNOTE ---
Dyspnea - General Presenting Symptoms: shortness of breath, other - chest pain Time Seen by Provider: 04/04/17 22:28 Source: patient Exam Limitations: no limitations - Immun/Allergies/Home Medications Immunizations: IMMUNIZATION HX Immunizations Up to Date Yes History of Influenza Vaccine No Hx Pneumococcal Vaccination No Allergies/Adverse Reactions: Allergies fexofenadine HCl [From Neris] Allergy (Verified 04/04/17 22:27) Other Home Medications: HOME MEDICATIONS Omeprazole [Prilosec] 20 mg PO DAILY 02/23/16 [Last Taken Unknown] Albuterol Sulfate [Proair Hfa] 2 puff IH TID PRN #1 inhaler 07/14/16 [Last Taken Unknown] Lisinopril 5 mg PO DAILY 10/17/16 [Last Taken Unknown] Propranolol HCl 40 mg PO DAILY 10/17/16 [Last Taken Unknown] ALPRAZolam [Xanax] 1 mg PO TID 03/23/17 [Last Taken Unknown] Exenatide [Byetta] 5 mcg SQ BID 03/23/17 [Last Taken Unknown] Ondansetron [Zofran Odt] 4 mg PO Q8H PRN #20 tab 03/23/17 [Last Taken Unknown] Ranitidine HCl 75 mg PO QID #40 tablet 03/23/17 [Last Taken Unknown] glipiZIDE [Glipizide] 10 mg PO BID 03/23/17 [Last Taken Unknown] traMADol HCL [Tramadol HCl] 50 mg PO Q6H 03/23/17 [Last Taken Unknown] - History of Present Illness Narrative: Pt was shopping and began to feel short of breath. She then had onset of tinging in her upper left chest and pain lower sternal. She tried a xanax at home but this did not change her symptoms Severity: moderate Treatment MANAGER LSW: by patient, other - xanax Initiating event: Reports: other - walking through the grocery store Modifying Factors - (Improves): Reports: rest Modifying Factors (Worsens): Reports: activity Associated Symptoms-Dyspnea: Reports: sweating, dizziness Review of Systems - Review of Systems Constitutional: Absent: recent illness EYE: Present: no symptoms reported ENT: Present: no symptoms reported Respiratory: Present: shortness of breath, wheezing Cardiology: Present: chest pain Gastrointestinal/Abdominal: Present: nausea, diarrhea Genitourinary: Present: no symptoms reported Musculoskeletal: Present: back pain Skin: Present: no symptoms reported Neurological: Present: dizziness/light-headedness, tingling Endocrine: Present: no symptoms reported Hematologic/Lymphatic: Present: no symptoms reported Psych: Present: anxiety - Patient's Past Medical History Patient History - Medical: Anxiety, Diabetes Type 2, Depression, GERD, Obesity Patient History - Cardiac/Respiratory: Hypertension Patient History - Cancer: No Hx of Cancer Patient History - Surgical Procedures: Cholecystectomy, , Tubal Ligation Patient History - Other: None - Family History Mother\ Family History - Medical: Diabetes Type 2 Family History - Cardiac/Respiratory: Hypertension Father] Family History - Medical: Diabetes Type 2 Family History - Cardiac/Respiratory: Hypertension - Social History Living Situations: home Abuse History: No History of abuse Psych History: Hx of Anxiety, Hx of Depression, Hx of Psychiatric Tx Smoking Status: Current every day smoker - Immunizations Immunizations Up to Date: Yes Hx Pneumococcal Vaccination: No History of Influenza Vaccine: No Physical Exam - Physical Exam General Appearance: Present: wd/wn, alert, no apparent distress Head Exam: Present: normal inspection, no evidence of injury Neck: Present: normal inspection, nontender Respiratory: Present: no respiratory distress, normal breath sounds, no accessory muscle use, lungs clear Cardiovascular/Chest: Present: regular rate, rhythm, no murmur, normal peripheral pulses Gastrointestinal/Abdominal: Present: normal bowel sounds, nontender, soft Extremity Exam: Present: normal inspection, normal range of motion, no edema Neurological Exam: Present: alert, oriented, normal mood/affect, no motor/ sensory deficits Skin Exam: Present: normal color, warm/dry Lymphatic Exam: Present: no adenopathy ED Progress - Results and Orders Patient's Lab Results:: I have reviewed the patient's lab results. Results and Orders: Laboratory Tests 04/04/17 04/04/17 04/04/17 22:39 22:39 22:39 WBC 7.9 Hgb 13.2 Hct 40.5 Plt Count 239 PT 10.3 INR (Anticoag Therapy) 0.99 PTT ([place]) 27.3 Sodium 141 Potassium 4.3 Chloride 104 Carbon Dioxide 31.0 BUN 6 Creatinine 0.92 Random Glucose 149 H Calcium 8.3 Total Bilirubin 0.3 AST 38 ALT 51 Alkaline Phosphatase 96 Troponin I Less than 0.017 Total Protein 6.9 Albumin 3.1 L - Vital Signs Patient's Vital Signs:: I have reviewed the patient's vital signs. Vital Signs: Vital Signs 04/04/17 22:20 Temperature 36.6 C Pulse Rate 88 Respiratory 16 Rate Blood Pressure 129/77 O2 Sat by Pulse 97 Oximetry - X-Ray X-Ray #1 X-Ray: chest Interpretation: Reviewed by me X-ray Comments: IMPRESSION: 1. STABLE APPEARING NODULES WITHIN THE ANTERIOR UPPER CHEST ON THE LATERAL STUDY WHICH I BELIEVE OVERLIE THE RIGHT PARATRACHEAL REGION. THESE APPEAR TO BE CALCIFIED AND ARE UNCHANGED SUGGESTING PRIOR GRANULOMATOUS DISEASE. 2. NO ACUTE CARDIOPULMONARY PROCESS. Electronically signed by Irving Mcknight M.D.. - Progress/Reassessment Chief Complaint: Dyspnea Progress:: Improved Departure Clinical Impression: Panic attack, Bronchitis - Departure Disposition: Home self-care Condition: Good Instructions: Panic Attacks, [id number], Acute Bronchitis, [id number] Additional Instructions: you may use mucinex or generic equivalent 600 or 1200 mg twice a day. Make sure you drink plenty of water.
[2017-04-04 22:52] LABS: Prothrombin Time (Patient) 10.3 Seconds (9.4-11.4)
[2017-04-04 23:02] LABS: ALT 51 U/L (19-67); AST 38 U/L (0-48); Albumin * 3.1 gm/dl (3.4-5.0); Alkaline Phosphatase * 96 U/L (50-170); Anion Gap 10.3 mmol/L (6.8-13.8); BUN/Creatinine Ratio 6.5 (9.0-21.6); Bilirubin, Total 0.3 mg/dL (0.0-1.1); Blood Urea Nitrogen 6 mg/dL (3-23); Ca. Corrected For Albumin 8.7 mg/dL (8.4-10.2); Calcium * 8.3 mg/dL (7.9-10.9); Chloride 104 mmol/L (97-106); Glucose * 149 mg/dL (70-110); Potassium 4.3 mmol/L (3.4-4.6); Sodium 141 mmol/L (132-142); Total Protein 6.9 gm/dL (6.2-8.2); Troponin I Less than 0.017 ng/ml (0.00-0.10)
[2017-04-04 23:05] LABS: INR 0.99 INR (0.90-1.10); Partial Thrombolplastin Time 27.3 Seconds (24-32)
[2017-04-05 04:32] VITALS: BP 141/82
== END 2017-04-05 01:26 | disposition home or self-care (01) ==
LOC: ER 22:09
DX: F41.0 Panic disorder [episodic paroxysmal anxiety] (principal); J40 Bronchitis, not specified as acute or chronic; F17.200 Nicotine dependence, unspecified, uncomplicated